=== PATIENT | male | born 1960 | race Caucasian/White ===

== ENCOUNTER 2017-03-09 08:52 | Emergency (ER) | payer OTHER ==
[~2017-03-09] VITALS: Ht 180.3 cm; Wt 154.3 kg
[2017-03-09] MEDS ORDERED: TRAMADOL HCL50 MG PO (10:01)
[2017-03-09] MEDS ORDERED: NAPROSYN500 MG PO (10:01)
[2017-03-09] MEDS ORDERED: LIDODERM 5% P1 PATCH TD (10:01)
[2017-03-09] MEDS ORDERED: FLEXERIL10 MG PO (10:01)
[2017-03-09 10:11] VITALS: BP 123/75
== END 2017-03-09 10:12 | disposition home or self-care (01) ==
LOC: EME 08:52
DX: S16.1XXA Strain of muscle, fascia and tendon at neck level, initial encounter (principal); W10.9XXA Fall (on) (from) unspecified stairs and steps, initial encounter; M62.830 Muscle spasm of back; Z88.0 Allergy status to penicillin
CPT/HCPCS: 99281; 99284; J1885